=== PATIENT | male | born 1975 | race Caucasian/White ===

== ENCOUNTER 2017-01-07 16:33 | Emergency (ER) | payer OTHER ==
--- NOTE | ~2017-01-07 | CR94 ---
[facility] A Service of [facility] RADIOLOGY TEXT RESULTS PATIENT: GARIMA ANSARI LOCATION: SED : 77 UNIT #: [id number] AGE: [address]: BEE MAK PA-C SEX: M ORDER DR: [id number] [place] [id number] E MR#: [id number] Acc #: [id number] NAME: GARIMA ANSARI. : 1975 SEX: M STUDY DATE/TIME: 01/07/2017 15:47 UNIT: SED ROOM: STUDY DESCRIPTION: CR Elbow Min 3 Views Rt Attending Physician: Bee Mak Pa-C Ordering Physician: Abdoul Long M.D. Primary Care Physician: No Primary Care Physician MEDICAL IMAGING REPORT This report is preliminary unless electronic signature is present. EXAM Right elbow 01/07/2017 HISTORY Elbow pain after falling 2 days ago. TECHNIQUE 4 views of the elbow were obtained. FINDINGS 4 views of the elbow show a chronic-appearing subluxation of the radius along the distal aspect of the humerus with moderate bony remodelling. No definite acute fractures are seen. Degenerative changes are seen at the articulation of the humerus and olecranon fossa of the ulna. No effusion is noted. 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 No acute bony abnormalities are seen. Dictated by... Jigar Daniel M.D. THIS IS AN ELECTRONICALLY VERIFIED REPORT Jigar Daniel M.D. at 01/07/2017 6:35 PM MUSTAPHA/erica TD: 01/07/2017 18:10 JOB #: [id number] MEDICAL IMAGING REPORT [facility] A Service of [facility] RADIOLOGY TEXT RESULTS PATIENT: GARIMA ANSARI LOCATION: SED : 77 UNIT #: [id number] AGE: [address]: BEE MAK PA-C SEX: M ORDER DR: Page 1 of 1
--- NOTE | ~2017-01-07 | CR111 ---
[facility] A Service of [facility] & [facility] RADIOLOGY TEXT RESULTS PATIENT: GARIMA ANSARI LOCATION: SED : [birth year] UNIT #: [id number] AGE: [address]: BEE MAK PA-C SEX: M ORDER DR: [id number] [place] [id number] E MR#: [id number] Acc #: [id number] NAME: GARIMA ANSARI. : 1975 SEX: M STUDY DATE/TIME: 01/07/2017 15:47 UNIT: SED ROOM: STUDY DESCRIPTION: CR Finger 2 View 3rd Rt Attending Physician: Bee Mak Pa-C Ordering Physician: Abdoul Long M.D. Primary Care Physician: No Primary Care Physician MEDICAL IMAGING REPORT This report is preliminary unless electronic signature is present. EXAM Right third digit HISTORY Trauma. Patient fell 2 days ago. TECHNIQUE 3 views finger were obtained. FINDINGS 3 views of the finger show no evidence of fracture, dislocation or radiodense foreign body. No acute bony abnormalities are seen. Dictated by... Jigar Daniel M.D. THIS IS AN ELECTRONICALLY VERIFIED REPORT Jigar Daniel M.D. at 01/07/2017 6:35 PM RLF/patriciar TD: 01/07/2017 18:11 JOB #: [id number] MEDICAL IMAGING REPORT Page 1 of 1
[~2017-01-07 16:33] MED LIST: AMOXICILLIN875 MG PO; VOLTAREN75 MG PO
== END 2017-01-07 17:25 | disposition home or self-care (01) ==
LOC: SED 16:33
DX: S53.441A Ulnar collateral ligament sprain of right elbow, initial encounter (principal); S63.632A Sprain of interphalangeal joint of right middle finger, initial encounter; F17.210 Nicotine dependence, cigarettes, uncomplicated; W18.30XA Fall on same level, unspecified, initial encounter; Y92.89 Other specified places as the place of occurrence of the external cause
CPT/HCPCS: 29130; 73080; 73140; 99284

== ENCOUNTER 2017-02-24 21:17 | Emergency (ER) | payer OTHER ==
--- NOTE | ~2017-02-24 | CR141 ---
[facility] A Service of [facility] RADIOLOGY TEXT RESULTS PATIENT: GARIMA ANSARI LOCATION: CFTX : [birth year] UNIT #: [id number] AGE: [address]: Susie Durant APRN SEX: M ORDER DR: [id number] [facility] [address] [place], [place] [address] [id number] E MR#: [id number] Acc #: [id number] NAME: GARIMA ANSARI. : 1975 SEX: M STUDY DATE/TIME: 02/25/2017 00:02 UNIT: [facility] ROOM: STUDY DESCRIPTION: CR Hand Min 3 Views Lt Attending Physician: Susie Durant A.P.R.N. Ordering Physician: Susie Durant A.P.R.N. Primary Care Physician: Primary Care Physician No MEDICAL IMAGING REPORT This report is preliminary unless electronic signature is present EXAM Left hand, 02/25 0002 hours INDICATIONS Left hand pain after falling and hitting hand on a brick wall today. COMPARISON 08/14/2004 FINDINGS AP, lateral, and oblique projections of the hand show good mineralization with normal carpal, metacarpal, and phalangeal anatomy without indication of fracture, dislocation, or soft tissue radiopaque foreign body. IMPRESSION Normal left hand. Dictated by... Jigar Red Jr., M.D. THIS IS AN ELECTRONICALLY VERIFIED REPORT Jigar Red Jr., M.D. at 02/25/2017 6:02 AM MATTY/adeel TD: 02/25/2017 02:50 JOB #: [id number] MEDICAL IMAGING REPORT Page 1 of 1 COPY
== END 2017-02-25 01:35 | disposition home or self-care (01) ==
LOC: CED 21:17 → CFTX 21:17
DX: S60.222A Contusion of left hand, initial encounter (principal); W22.8XXA Striking against or struck by other objects, initial encounter
CPT/HCPCS: 29280; 73130; 99283